=== PATIENT | female | born 1980 | race Hispanic/Latino ===

== ENCOUNTER 2017-07-21 12:33 | Emergency (ER) | payer BC, MEDICAID ==
[2017-07-21 12:41] VITALS: BP 147/84
[2017-07-21] MEDS ORDERED: NACL 0.9% 1000 ML 1,000 ML IV ONE (13:51)
[2017-07-21] MEDS ORDERED: ZOFRAN IV ONE (13:51)
[2017-07-21] MEDS ORDERED: TORADOL IV ONE (13:51)
--- NOTE | 2017-07-21 13:51 | Emergency Department Report ---
Blank Doc - Documentation Documentation: Patient is a 36-year-old female who is presenting with headaches. Patient states that headache for possibly 4 days. Patient has had nausea with this. Patient denies any fevers or neck stiffness. Patient has a history of migraines. Patient been under quite a bit of stress as well. The patient also states that she's had some rather relatively irregular menses for the past 2 months gestational start bleeding. MrsFabian mcgarry she's had multiple episodes of short intervals of bleeding. Patient removed her treatment. We will check a test patient will be given IV fluids headache medicatio will be reassessed. Deepti
[2017-07-21] MEDS ORDERED: BENADRYL IV ONE (13:52)
--- NOTE | 2017-07-21 14:33 | Emergency Department Report ---
ED Headache HPI - General Chief Complaint: Headache Stated Complaint: MIGRAINE HEADACHE Time Seen by Provider: 07/21/17 13:44 - History of Present Illness Initial Comments: This is a 36-year-old female nontoxic, well nourished in appearance, no acute signs of distress presents to the ED with c/o of acute on chronic headache. Patient stated headache returned 2 days ago. Patient denies any trauma. Patient stated she has been in a lot of stress and has been thinking a lot due to divorce and has to face her ex in court. Patient associated symptoms includes nausea without vomiting. Patient denies any neck pain or stiffness. Patient stated this is the same headache she gets during her migrane headaches. Patient denies any visual changes, vomiting, chest pain, shortness of breathe, fever, chills, stiff neck, back pain or abdominal pain. Patient described headache as gradual onset diffusely but denies worst headache or thunderclap headache. Timing/Duration: episodic Quality: mild, achy Head Injury Location: other (diffuse) Recent Head Trauma: no recent headache/trauma, chronic headaches Associated Symptoms: denies symptoms. denies: confusion, fatigue, facial pain, fever/chills, flushing, loss of consciousness, nausea/vomiting, nasal congestion , nasal drainage, numbness in legs/feet, rash, seizures, sinus infection, stiff neck, vision changes, weakness Allergies/Adverse Reactions: Allergies No Known Allergies Allergy (Unverified 07/21/17 12:37) Home Medications: Ambulatory Orders Butalb/Acetamin/Caff 50-325-40 [Fioricet] 1 tab PO Q6HR PRN #20 tab 07/21/17 Sulfamethoxazole/Trimethoprim [Bactrim DS TAB] 1 each PO BID #14 tablet ED Review of Systems ROS: Stated complaint: MIGRAINE HEADACHE Other details as noted in HPI Constitutional: denies: chills, fever Eyes: denies: eye pain, eye discharge, vision change ENT: denies: ear pain, throat pain Respiratory: denies: cough, shortness of breath, wheezing Cardiovascular: denies: chest pain, palpitations Endocrine: no symptoms reported Gastrointestinal: denies: abdominal pain, nausea, diarrhea Genitourinary: denies: urgency, dysuria, discharge Musculoskeletal: denies: back pain, joint swelling, arthralgia Skin: denies: rash, lesions Neurological: headache. denies: weakness, paresthesias Psychiatric: denies: anxiety, depression Hematological/Lymphatic: denies: easy bleeding, easy bruising ED Past Medical Hx - Past Medical History Previous Medical History?: Yes Hx Headaches / Migraines: Yes - Surgical History Past Surgical History?: Yes Additional Surgical History: tubaligation - Social History Smoking Status: Former Smoker Substance Use Type: Alcohol - Medications Home Medications: Home Medications Medication Instructions Recorded Confirmed Last Taken Type Butalb/Acetamin/Caff 50-325-40 1 tab PO Q6HR PRN #20 tab 07/21/17 Unknown Rx [Fioricet] Sulfamethoxazole/Trimethoprim 1 each PO BID #14 tablet 07/21/17 Unknown Rx [Bactrim DS TAB] ED Physical Exam - General Limitations: No Limitations General appearance: alert, in no apparent distress - Head Head exam: Present: atraumatic, normocephalic - Eye Eye exam: Present: normal appearance Pupils: Present: normal accommodation - ENT ENT exam: Present: normal exam, mucous membranes moist - Neck Neck exam: Present: normal inspection, full ROM. Absent: tenderness, meningismus - Respiratory Respiratory exam: Present: normal lung sounds bilaterally. Absent: respiratory distress, wheezes, rales, rhonchi, stridor - Cardiovascular Cardiovascular Exam: Present: regular rate, normal rhythm, normal heart sounds. Absent: bradycardia, tachycardia, irregular rhythm, systolic murmur, diastolic murmur, rubs, gallop - GI/Abdominal GI/Abdominal exam: Present: soft, normal bowel sounds - Rectal Rectal exam: Present: deferred - Extremities Exam Extremities exam: Present: normal inspection, full ROM, normal capillary refill - Back Exam Back exam: Present: normal inspection, full ROM - Neurological Exam Neurological exam: Present: alert, oriented X3, CN II-XII intact, normal gait, reflexes normal - Expanded Neurological Exam Expanded Patient oriented to: Present: person, place, time Cranial nerves: Gag Reflex: Normal, Facial Sensation: Normal, Facial Palsy with Forehead Movement: Normal Cerebellar function: Finger to Nose: Normal Upper motor neuron: Pronator Drift: Normal, Sensory Extinction: Normal Sensory exam: Upper Extremity Light Touch: Normal, Upper Extremity Pin Prick: Normal, Upper Extremity Temperature: Normal, UE 2 Point Discrimination: Normal, Lower Extremity Light Touch: Normal, Lower Extremity Pin Prick: Normal, Lower Extremity Temperature: Normal, LE 2 Point Discrimination: Normal Motor strength exam: RUE: 5, LUE: 5, RLE: 5, LLE: 5 DTR: bicep (R): 2+, bicep (L): 2+, tricep (R): 2+, tricep (L): 2+, knee (R): 2+ , knee (L): 2+, ankle (R): 2+, ankle (L): 2+ Best Eye Response ([place]): (4) open spontaneously Best Motor Response ([place]): (6) obeys commands Best Verbal Response ([place]): (5) oriented [place] Total: 15 - Psychiatric Psychiatric exam: Present: normal affect, normal mood - Skin Skin exam: Present: warm, dry, intact, normal color. Absent: rash ED Course Vital Signs 07/21/17 12:37 Temperature 99.1 F Pulse Rate 89 Respiratory 22 Rate Blood Pressure 147/84 O2 Sat by Pulse 99 Oximetry - Reevaluation(s) Reevaluation #1: 07/21/17 14:36 Patient is speaking in full sentences with no signs of distress noted. - Consultations Consultation #1: 07/21/17 14:37 Patient has been consulted with Dr. Huerta about patient history, physical exam , and labs and examined and screened patient and agrees to ED plan of care and discharge plan of care. ED Medical Decision Making - Medical Decision Making This is a 36-year-old female that presents with migraine headache. Patient is stable on exam by me and Dr. Huerta. Patient is neurologically stable. There is no signs or symptoms of stroke. Patient received Toradol, Benadryl, and Zofran IV with 1L of normal saline which patient stated symptoms has resolved. Patient is discharged with Fioricet. UA indicates UTI. She was referred to Follow-up with a primary care/neurologist doctor in 3-5 days or if symptoms worsen and continue return to emergency room as soon as possible. At time of discharge, the patient does not seem toxic or ill in appearance. No acute signs of distress noted. Patient agrees to discharge treatment plan of care. No further questions noted by the patient. Critical care attestation.: If time is entered above; I have spent that time in minutes in the direct care of this critically ill patient, excluding procedure time. ED Disposition Clinical Impression: Migraine headache Qualifiers: Migraine type: other Status migrainosus presence: without status migrainosus Intractability: not intractable Qualified Code(s): G43.809 - Other migraine, not intractable, without status migrainosus UTI (urinary tract infection) Qualifiers: Urinary tract infection type: site unspecified Hematuria presence: with hematuria Qualified Code(s): N39.0 - Urinary tract infection, site not specified ; R31.9 - Hematuria, unspecified Disposition: DC- TO HOME OR SELFCARE Is pt being admited?: No Does the pt Need Aspirin: No Condition: Stable Instructions: Butalbital/Aspirin/Caffeine (By mouth), Migraine Headache (ED) Additional Instructions: Follow-up with a primary care doctor in 3-5 days or if symptoms worsen and continue return to emergency room as soon as possible. Prescriptions: Butalb/Acetamin/Caff 50-325-40 [Fioricet] 1 tab PO Q6HR PRN #20 tab PRN Reason: Headache Sulfamethoxazole/Trimethoprim [Bactrim DS TAB] 1 each PO BID #14 tablet Referrals: KAY GARRETT MD [Primary Care Provider] - 3-5 Days PRIMARY CARE, [Referring] - 3-5 Days LUH OTT MD [Staff Physician] - 3-5 Days [facility] [Outside] - 3-5 Days [facility] [Outside] - 3-5 Days Forms: Work/School Release Form(ED)
[2017-07-21] MEDS ORDERED: NORCO 7.5/325 PO ONE (15:03)
[2017-07-21 15:20] LABS: HCG Qualitative,Urine Negative (Negative)
[2017-07-21 15:28] LABS: Bacteria,Urine 4+ /HPF (Negative); Bilirubin,Urine NEG (Negative); Blood,Urine SM (Negative); Color,Urine Yellow (Yellow); Mucus,Urine 1+ /HPF; Protein,Urine <15 mg/dL mg/dL (Negative); Urobilinogen,Urine < 2.0 mg/dL (<2.0)
== END 2017-07-21 16:02 | disposition home or self-care (01) ==
LOC: ED 12:33
DX: G43.909 Migraine, unspecified, not intractable, without status migrainosus (principal); N39.0 Urinary tract infection, site not specified; Z87.891 Personal history of nicotine dependence
CPT/HCPCS: 81001; 81025; 96361; 96374; 96375; 99283; J1200; J1885; J2405; J7030